=== PATIENT | male | born 1975 | race Caucasian/White ===

== ENCOUNTER 2020-10-21 09:46 | Day surgery (SDC) | payer OTHER ==
[2020-10-21] MEDS ORDERED: CEFAZOLIN/SWI 2gm 2 GM/20 ML SYR ONE (10:24)
[2020-10-21] MEDS ORDERED: Ringers Lactate 1,000 ML IV ONE ×2 (10:24→14:00)
[2020-10-21 10:52] VITALS: O2SAT 100
[2020-10-21] MEDS ORDERED: EPINEPHRINE INH 0.5 ML VIAL IH ONE (11:52)
[2020-10-21] MEDS ORDERED: LIDOCAINE 1% W/EPI 1:100,000 MDV 20 ML VIAL ONE (12:01)
[2020-10-21] MEDS ORDERED: ROCURONIUM 50 MG/5 ML VIAL IV ONE (12:04)
[2020-10-21] MEDS ORDERED: LIDOCAINE 1% MPF 5 ML VIAL ONE (12:04)
[2020-10-21] MEDS ORDERED: FENTANYL CITR 100 MCG/2 ML ONE (12:04)
[2020-10-21] MEDS ORDERED: propofoL 200 MG/20 ML VIAL IV ONE ×5 (12:04→13:35)
[2020-10-21] MEDS ORDERED: MIDAZOLAM HCL 2 MG/2 ML INJ ONE (12:04)
[2020-10-21] MEDS ORDERED: SUCCINYLCHOLINE 20 MG/ML (10 ML) IV ONE (12:32)
[2020-10-21] MEDS ORDERED: OXYMETAZOLINE HCL 0.05% 15ML NAS ONE (12:34)
[2020-10-21] MEDS ORDERED: GLYCOPYRROLATE 0.2 MG/ML SYR ONE (12:41)
[2020-10-21] MEDS ORDERED: dexAMETHasone 10 MG/ML VIAL ONE (13:23)
[2020-10-21] MEDS: FENTANYL CITR 100 MCG/2 ML ONE ×2 (14:03→14:08)
[2020-10-21] MEDS ORDERED: KETOROLAC 30 MG/ML INJ ONE (14:22)
[2020-10-21] MEDS: MEPERIDINE HCL 25 MG/ML SYR ONE ×2 (14:30→14:35)
[2020-10-21 15:40] VITALS: BP 130/81
[2020-10-21] MEDS ORDERED: ACETAMINOPHEN 325 MG TABLET ONE (15:46)
--- NOTE | 2020-10-21 16:20 | P.BOP ---
Preoperative diagnosis: toxic multinodular goiter Postoperative diagnosis: same Primary procedure: planning left hemithyroidectomy, aborted Estimated blood loss: NA Specimen: none Findings: unable to intubate patient Anesthesia: General Complications: UNable to intubate patient, unable to proceed with planned surgery Transferred to: Recovery Room Condition: Fair
--- NOTE | 2020-10-21 16:25 | P.PN ---
Date of Service: 10/21/20 I examined the patient in the day surgery unit at 4PM, approximately 2 hours following the decision to abort his surgery due to inability to intubate the patient. He complained of some headache and sore throat and left neck discomfort. He tolerated ice chips and sips of water without difficulty. His voice had a gurgly, wet sound, consistent with expected supraglottic swelling. He did not have any stridor or increase work of breathing. He appeared comfortable overall and denied any subjective respiratory distress. I felt he was safe for discharge in the care of his mother. They were instructed to return for any subjective difficulty breathing or worsening voice/swallowing concerns. He is instructed to sleep upright or on a incline tonight and until the voice sounds more normalized. A prescription for methylprednisolone taper and low dose xanax was sent to the [facility]. The Xanax can be used PRN for anxiety or agitation though he appear much more calm now compared to immediately after surgery. He will follow up in 10 days to discuss options for treatment of his conditions.
[2020-10-21 16:32] VITALS: TEMP 97.6
--- NOTE | 2020-10-21 22:27 | OP ---
Date of Procedure: 10/21/2020 Surgeon: Kirsten Perez MD Preoperative Diagnoses: Hyperthyroidism with toxic multinodular goiter. Postoperative Diagnoses: Hyperthyroidism with toxic multinodular goiter. Procedure: Planned left hemithyroidectomy was aborted due to unforeseen circumstances. Indication For Procedure: Mr. Nj is a 45-year-old male with an underlying medical history of chromosomal abnormality, who was referred by his secure software assessor for surgical treatment of his hyperthyroidism. The patient had a previous ultrasound demonstrating bilateral thyroid nodules. An iodine uptake scan was performed due to his hyperthyroidism and demonstrated an active left "hot" nodule. The cold nodule on the right was evaluated with fine-needle aspiration biopsy, which confirmed benign behavior. The patient's hyperthyroidism is controlled with medications, but in consultation with the secure software assessor, it was unlikely if he would experience remission and would require lifelong thyroid suppression. Based on recommendation from the secure software assessor, the risks, benefits and alternatives were discussed with his mother, who is his medical decision maker. The plan for left becky-thyroidectomy was determine and he was brought to the operating room for the procedure. Procedure In Detail: The patient was brought to the operating room. Perioperative assessment suggested the patient would have a difficult airway due to the shortness and width of his neck, smallness of his jaw and retrognathia and limited mouth opening. Preparation and equipment were made in anticipation of a difficult airway. Anesthesia was administered via IV and inhalational agents. The patient was easily masked and ventilated. Initial laryngoscopy revealed limited view of the larynx. The GlideScope was used with reasonable visualization of the epiglottis, but limited view of the vocal cords. Multiple attempts were made to pass the endotracheal tube without success. The patient was intermittently ventilated via bag-mask ventilation and his oxygen saturations were maintained above 90% throughout the procedure. A flexible bronchoscope was used in conjunction with the [place] Scope in order to better direct the passage of the endotracheal tube. I personally assisted and attempted to intubate the patient in conjunction with the attending anesthesiologist and [facility] staff. During my attempt, the tip of the endotracheal tube seemed to be at the area of the vocal folds and was seen between the epiglottis and the arytenoids, but in attempting to pass the endotracheal tube, significant resistance was met and firm pressure was not applied in interest of avoiding damage to the larynx or trachea. Attempts were made using a variety of sizes of endotracheal tube down to a 6.0 tube without success. A laryngeal mask airway was placed and the patient was easily ventilated through this device, but the anesthesia staff was uncomfortable proceeding with any thyroid surgery without an endotracheal tube in place. After greater than 1 hour of interventional time with multiple attempts, multiple devices, and multiple providers, we were unable to secure the patient's airway in a way that would allow us to proceed with surgery. In careful consideration of the overall circumstances and in a desire to avoid further exacerbating the supraglottic edema, a decision was made to abort the planned procedure. The patient was given intravenous dexamethasone to help reduce supraglottic edema. He was also carefully monitored with bag-mask ventilation assistance until we felt he was breathing well on his own. He was then transported to the recovery room where he was closely observed for evidence of airway obstruction. After approximately an hour and a half, the patient appeared to be doing well and was transferred to Day Surgery for further evaluation. I had a detailed discussion with the patient's mother following the decision to abort his surgery. We discussed the surrounding circumstances. We will plan to review the details of his case, his overall medical condition, revisit alternatives to surgery and reassess the balance of the risk and benefit between surgical versus medical management of his hyperthyroidism and reconvene for a family conference 10 days postoperatively. KAVON Voice ID: [id number] Report ID: [id number] SHERI
== END 2020-10-21 16:19 | disposition home health service (06) ==
LOC: OR 09:46
PROVIDERS: ATTEND Otolaryngology
PROC: 0GBG0ZZ Excision of Left Thyroid Gland Lobe, Open Approach (ICD-10-PCS; principal; 2020-10-21 11:45)
DX: E05.20 Thyrotoxicosis with toxic multinodular goiter without thyrotoxic crisis or storm (principal); Z20.822 Contact with and (suspected) exposure to COVID-19; Z53.09 Procedure and treatment not carried out because of other contraindication
CPT/HCPCS: 93005; 60210; U0002; J2704 ×5; J0330; J2250; J3010; J1100; J2175; J0690; J7120 ×2